=== PATIENT | female | born 1995 | race Caucasian/White ===

== ENCOUNTER 2021-06-25 02:49 | Emergency (ER) | payer BC ==
[~2021-06-25] VITALS: Ht 172.7 cm; Wt 59.0 kg
[2021-06-25] MEDS ORDERED: CITA20 PO (03:04)
[2021-06-25 03:51] LABS: Influenza A, PCR NEGATIVE (NEGATIVE); Influenza B, PCR NEGATIVE (NEGATIVE); Resp Syncytial Virus, PCR NEGATIVE (NEGATIVE)
[2021-06-25 03:52] LABS: SARS-Cov-2 (COVID-19) PCR, MMC POSITIVE (NEGATIVE)
[2021-06-25] MEDS ORDERED: IBU600 MG PO (03:58)
[2021-06-25] MEDS ORDERED: COMPAZINE10 MG PO (03:58)
== END 2021-06-25 04:03 | disposition home or self-care (01) ==
LOC: ER 02:49
PROVIDERS: Emergency Medicine
DX: U07.1 COVID-19 (principal)
CPT/HCPCS: 0241U; 96372; 99284-25; J0780; J1885